=== PATIENT | female | born 1975 | race Caucasian/White ===

== ENCOUNTER 2023-07-19 17:21 | Emergency (ER) | payer MEDICAID ==
[~2023-07-19] VITALS: Ht 170.2 cm; Wt 89.0 kg
[2023-07-19 17:31] VITALS: BP 142/92; PULSE 85; RESP 18; O2SAT 96
[2023-07-19] MEDS: cefTRIAXone SOD 1,000 MG VL IM ONE (21:19)
[2023-07-19] MEDS: TETANUS-DIPTH-ACEL PERTUSSIS 0.5ML SYR Tdap IM ONE (21:19)
[2023-07-19] MEDS ORDERED: IBUP-1456 PO (21:20)
[2023-07-19] MEDS ORDERED: AMOX875T4 PO (21:20)
[2023-07-19] MEDS: HYDROcodone-ACET 5/325MG TAB PO ONE (21:23)
[2023-07-19] MEDS: BACITRACIN TOP OINT 1 UD PKG TOP ONE (21:49)
== END 2023-07-19 21:48 | disposition home or self-care (01) ==
LOC: ER 17:21
DX: S91.311A Laceration without foreign body, right foot, initial encounter (principal); S90.411A Abrasion, right great toe, initial encounter; Z98.890 Other specified postprocedural states; Z79.899 Other long term (current) drug therapy; W54.0XXA Bitten by dog, initial encounter; Y93.89 Activity, other specified; Y92.89 Other specified places as the place of occurrence of the external cause; Y99.8 Other external cause status
CPT/HCPCS: 12002; 90471; 90715; 96372; 99284; J0696

== ENCOUNTER 2023-12-09 09:49 | Emergency (ER) | payer MEDICAID ==
[~2023-12-09] VITALS: Ht 170.2 cm; Wt 92.4 kg
[~2023-12-09 09:49] MED LIST: AMOX875T4 PO; IBUP-1456 PO
[2023-12-09 10:42] VITALS: BP 134/77; PULSE 93; RESP 22; TEMP 97.8; O2SAT 96
[2023-12-09] MEDS: cefTRIAXone SOD 1,000 MG VL IM ONE (11:06)
[2023-12-09] MEDS ORDERED: TRIA0.02 TOP (11:13)
== END 2023-12-09 11:29 | disposition home or self-care (01) ==
LOC: ER 09:49
DX: S80.861A Insect bite (nonvenomous), right lower leg, initial encounter (principal); W57.XXXA Bitten or stung by nonvenomous insect and other nonvenomous arthropods, initial encounter; Y93.89 Activity, other specified; Y92.095 Swimming-pool of other non-institutional residence as the place of occurrence of the external cause; Y99.8 Other external cause status
CPT/HCPCS: 96372; 99283; J0696